=== PATIENT | male | born 1960 | race African-American/Black ===

== ENCOUNTER 2018-08-31 23:10 | Emergency (ER) | payer MEDICAID ==
[~2018-08-31] VITALS: Ht 182.9 cm; Wt 84.0 kg
[2018-09-01 00:57] LABS: CLARITY URINE CLOUDY (CLEAR); COLOR URINE DARK YELLOW (YELLOW); KETONES URINE TRACE (NEGATIVE); LEUKOCYTE ESTERASE URINE NEGATIVE (NEGATIVE); NITRITE URINE NEGATIVE (NEGATIVE); OCCULT BLOOD URINE NEGATIVE (NEGATIVE); PH URINE 5.5 (4.5-8.0); PROTEIN URINE 1+ (NEGATIVE); SPECIFIC GRAVITY URINE 1.031 (1.005-1.030)
[2018-09-01 01:03] LABS: CHLORIDE 106 mEq/L (98-107)
[2018-09-01 01:07] LABS: ETHANOL BLOOD < 10 mg/dL
[2018-09-01 01:12] LABS: BASOPHILS % 0.4 % (0.0-2.0); HEMATOCRIT. 42.3 % (42.0-52.0); HEMOGLOBIN. 14.2 g/dL (14.0-18.0); LYMPHOCYTES % 15.5 % (20.0-50.0); MEAN CORPUSCULAR HEMOGLOBIN 30.6 pg (28.0-32.0); MEAN CORPUSCULAR VOLUME 90.9 fL (80.0-94.0); MEAN PLATELET VOLUME 7.9 fl (7.4-10.4); MONOCYTES % 7.9 % (2.0-8.0); NEUTROPHILS % 74.2 % (40.0-76.0); PLATELET 246 x1000/uL (130-400); RED BLOOD CELL COUNT 4.65 mill/uL (4.7-6.1); RED CELL DISTRIBUTION WIDTH 14.6 % (11.6-14.6)
[2018-09-01 01:12] LABS: *AMPHETAMINES SCREEN URINE PRESUMTIVE POSITIVE (NEGATIVE); *BARBITURATES SCREEN URINE NEGATIVE (NEGATIVE); CANNABINOID URINE SCREEN PRESUMTIVE POSITIVE (NEGATIVE); PHENCYCLIDINE URINE SCREEN NEGATIVE (NEGATIVE)
[2018-09-01 01:13] LABS: *BENZODIAZEPINES SCREEN URINE PRESUMTIVE POSITIVE (NEGATIVE); *COCAINE SCREEN URINE PRESUMTIVE POSITIVE (NEGATIVE); METHADONE URINE SCREEN NEGATIVE (NEGATIVE); OPIATES URINE SCREEN NEGATIVE (NEGATIVE)
[2018-09-01] MEDS ORDERED: SODIUM CHLORIDE 0.9% 1,000 ML IV ONE (01:15)
[2018-09-01] MEDS ORDERED: ARIPIPRAZOLE 10MG TABLET PO ONE (21:00)
[2018-09-02] MEDS ORDERED: ALBUTEROL (0.083%) 2.5MG/3ML NEB HHN ONE (00:45)
[2018-09-02 07:54] VITALS: BP 112/67
== END 2018-09-02 08:01 | disposition home or self-care (01) ==
LOC: ER 23:10
DX: R45.851 Suicidal ideations (principal); F99 Mental disorder, not otherwise specified; Z91.14 Patient's other noncompliance with medication regimen; I10 Essential (primary) hypertension; F15.10 Other stimulant abuse, uncomplicated; F16.10 Hallucinogen abuse, uncomplicated; F14.10 Cocaine abuse, uncomplicated; F12.10 Cannabis abuse, uncomplicated
CPT/HCPCS: 36415; 80053; 80305; 80307; 80329; 81003; 82962; 85025; 94640; 99284; G0482; J7030; J7611

== ENCOUNTER 2021-09-01 16:34 | Inpatient (IN) | payer MEDICAID ==
[~2021-09-01] VITALS: Ht 177.8 cm; Wt 65.3 kg
[2021-09-01] MEDS ORDERED: MAGNESIUM/ALUMINUM HYDROXIDE/SIMETHICONE 30ML UDC PO STA (16:43)
[2021-09-01] MEDS ORDERED: SODIUM CHLORIDE 0.9% 1,000 ML IV ONE (16:45)
[2021-09-01] MEDS ORDERED: PROCHLORPERAZINE 10MG/2ML VIAL IM ONE (16:45)
[2021-09-01 22:25] LABS: BASOPHILS % 0.3 % (0.0-2.0); EOSINOPHILS % 0.4 % (0.0-5.0); HEMATOCRIT. 26.8 % (42.0-52.0); HEMOGLOBIN. 8.7 g/dL (14.0-18.0); LYMPHOCYTES % 10.4 % (20.0-50.0); MEAN CORPUSCULAR HEMOGLOBIN 25.1 pg (28.0-32.0); MEAN CORPUSCULAR VOLUME 77.1 fL (80.0-94.0); MEAN PLATELET VOLUME 7.6 fl (7.4-10.4); MONOCYTES % 13.4 % (2.0-8.0); NEUTROPHILS % 75.5 % (40.0-76.0); PLATELET 270 x1000/uL (130-400); RED BLOOD CELL COUNT 3.48 mill/uL (4.7-6.1); RED CELL DISTRIBUTION WIDTH 18.6 % (11.6-14.6)
[2021-09-01 22:29] LABS: CHLORIDE 111 mEq/L (98-107)
[2021-09-01 22:33] LABS: ETHANOL BLOOD < 10 mg/dL
[2021-09-01] MEDS ORDERED: BACLOFEN 20MG TABLET PO NR (23:30)
[2021-09-01] MEDS ORDERED: BACLOFEN 10MG TABLET PO NR (23:30)
[2021-09-02 01:08] LABS: HEMATOCRIT 27.5 % (42.0-52.0); HEMOGLOBIN 8.8 g/dL (14.0-18.0)
[2021-09-02] MEDS ORDERED: SODIUM CHLORIDE 0.9% 500 ML IV NR (01:30)
[2021-09-02 01:55] LABS: CLARITY URINE CLEAR (CLEAR); COLOR URINE YELLOW (YELLOW); KETONES URINE NEGATIVE (NEGATIVE); LEUKOCYTE ESTERASE URINE NEGATIVE (NEGATIVE); NITRITE URINE NEGATIVE (NEGATIVE); OCCULT BLOOD URINE NEGATIVE (NEGATIVE); PROTEIN URINE TRACE (NEGATIVE); SPECIFIC GRAVITY URINE 1.022 (1.005-1.030); UROBILINOGEN URINE 0.2 E.U./dL (0.2-1.0)
[2021-09-02] MEDS ORDERED: MAGNESIUM/ALUMINUM HYDROXIDE/SIMETHICONE 30ML UDC PO NR (02:00)
[2021-09-02 02:04] LABS: *AMPHETAMINES SCREEN URINE NEGATIVE (NEGATIVE); *BARBITURATES SCREEN URINE NEGATIVE (NEGATIVE); *BENZODIAZEPINES SCREEN URINE NEGATIVE (NEGATIVE); *COCAINE SCREEN URINE PRESUMTIVE POSITIVE (NEGATIVE)
[2021-09-02 02:05] LABS: CANNABINOID URINE SCREEN PRESUMTIVE POSITIVE (NEGATIVE); METHADONE URINE SCREEN NEGATIVE (NEGATIVE); OPIATES URINE SCREEN NEGATIVE (NEGATIVE); PHENCYCLIDINE URINE SCREEN NEGATIVE (NEGATIVE)
[2021-09-02] MEDS ORDERED: IOHEXOL-300 100 ML BOTTLE ONE (02:38)
[2021-09-02 16:00] VITALS: BP 127/78
[2021-09-02] MEDS ORDERED: TH50 MT (16:52)
[2021-09-02] MEDS ORDERED: BACL-141 PO (16:52)
[2021-09-02 17:24] VITALS: BP 127/78
[2021-09-02] MEDS ORDERED: PNEUMOCOCCAL 23-VAL P-SAC VAC 0.5 ML IM ONE (17:45)
[2021-09-02] MEDS ORDERED: INFLUENZA VACCINE 05/PF 0.5 ML SYRINGE IM ONE (17:45)
[2021-09-02] MEDS ORDERED: ONDANSETRON HCL 4MG/2ML INJ IV PRN (18:00)
[2021-09-02] MEDS ORDERED: LACTULOSE 20G/30ML UDC PO NR (18:00)
[2021-09-02] MEDS ORDERED: POTASSIUM CHLORIDE 20MEQ TABLET SR PO NR (18:00)
[2021-09-02] MEDS ORDERED: ACETAMINOPHEN 325MG TABLET PO PRN (18:00)
[2021-09-02] MEDS: CHLORPROMAZINE HCL 25 MG TABLET PO PRN (19:01)
[2021-09-02 20:00] VITALS: BP 96/68
[2021-09-03] VITALS: BP_SYST 110; BP_SYST 130; BP_DIAS 68; BP_DIAS 69
[2021-09-03 04:00] VITALS: BP 129/82
[2021-09-03 07:03] LABS: BASOPHILS % 0.2 % (0.0-2.0); EOSINOPHILS % 0.7 % (0.0-5.0); HEMATOCRIT. 26.3 % (42.0-52.0); HEMOGLOBIN. 8.7 g/dL (14.0-18.0); MEAN CORPUSCULAR VOLUME 78.4 fL (80.0-94.0); MEAN PLATELET VOLUME 7.5 fl (7.4-10.4); MONOCYTES % 12.4 % (2.0-8.0); NEUTROPHILS % 63.7 % (40.0-76.0); PLATELET 277 x1000/uL (130-400); RED BLOOD CELL COUNT 3.36 mill/uL (4.7-6.1); RED CELL DISTRIBUTION WIDTH 18.4 % (11.6-14.6)
[2021-09-03 08:00] VITALS: BP 124/76
[2021-09-03 08:04] LABS: CHLORIDE 107 mEq/L (98-107)
[2021-09-03] MEDS ORDERED: DOCU250C14 MT (11:55)
[2021-09-03] MEDS ORDERED: OMEP20CA14 MT (11:55)
[2021-09-03] MEDS ORDERED: FERR-71 MT (11:55)
[2021-09-03 12:00] VITALS: BP 104/71
[2021-09-03] MEDS: CHLORPROMAZINE HCL 25 MG TABLET PO PRN (13:16)
== END 2021-09-03 14:05 | disposition left against medical advice (07) | DRG 254 ==
LOC: ER 16:34 → 7EST 09-02 02:14 → EDBEDREQSVC 09-02 09:33
PROVIDERS: ADMIT Internal Medicine; ATTEND Internal Medicine
DX: K31.1 Adult hypertrophic pyloric stenosis (principal); E43 Unspecified severe protein-calorie malnutrition; E87.8 Other disorders of electrolyte and fluid balance, not elsewhere classified; K92.2 Gastrointestinal hemorrhage, unspecified; K59.00 Constipation, unspecified; E87.6 Hypokalemia; D64.9 Anemia, unspecified; D72.819 Decreased white blood cell count, unspecified; F12.90 Cannabis use, unspecified, uncomplicated; Z53.29 Procedure and treatment not carried out because of patient's decision for other reasons; F14.90 Cocaine use, unspecified, uncomplicated; J45.909 Unspecified asthma, uncomplicated; Z68.20 Body mass index [BMI] 20.0-20.9, adult
CPT/HCPCS: 36415; 71045; 74177; 76705; 80048; 80053; 80305; 80320; 81003; 82270; 82728; 83540; 83605; 85014; 85018; 85025; 86850; 86900; 99291; J0780; J7030; Q0161; Q9967; G0480

== ENCOUNTER 2021-12-11 20:20 | Emergency (ER) | payer MEDICAID, OTHER ==
[~2021-12-11] VITALS: Ht 175.3 cm; Wt 66.0 kg
[~2021-12-11 20:20] MED LIST: BACL-141 PO; DOCU250C14 MT; FERR-71 MT; OMEP20CA14 MT; TH50 MT
[2021-12-11 20:25] VITALS: BP 151/90
[2021-12-11] MEDS ORDERED: DICYCLOMINE HCL 10MG/ML 2ML VIAL IM ONE (20:45)
[2021-12-11] MEDS ORDERED: ONDANSETRON HCL 4MG TABLET PO ONE (20:45)
[2021-12-11] MEDS ORDERED: ACETAMINOPHEN 325MG TABLET PO ONE (20:45)
[2021-12-11 21:41] LABS: HEMATOCRIT. 29.6 % (42.0-52.0); HEMOGLOBIN. 9.8 g/dL (14.0-18.0); MEAN CORPUSCULAR HEMOGLOBIN 26.8 pg (28.0-32.0); MEAN CORPUSCULAR VOLUME 81.3 fL (80.0-94.0); MEAN PLATELET VOLUME 6.8 fl (7.4-10.4); PLATELET 371 x1000/uL (130-400); RED BLOOD CELL COUNT 3.64 mill/uL (4.7-6.1)
[2021-12-11 21:48] LABS: CHLORIDE 106 mEq/L (98-107)
[2021-12-11 21:51] LABS: ETHANOL BLOOD < 10 mg/dL
[2021-12-11 21:58] LABS: PLATELET ESTIMATE NORMAL
[2021-12-12 01:54] LABS: CLARITY URINE CLEAR (CLEAR); COLOR URINE YELLOW (YELLOW); KETONES URINE NEGATIVE (NEGATIVE); LEUKOCYTE ESTERASE URINE NEGATIVE (NEGATIVE); NITRITE URINE NEGATIVE (NEGATIVE); OCCULT BLOOD URINE NEGATIVE (NEGATIVE); PROTEIN URINE NEGATIVE (NEGATIVE); SPECIFIC GRAVITY URINE 1.023 (1.005-1.030)
[2021-12-12 02:03] LABS: *BARBITURATES SCREEN URINE NEGATIVE (NEGATIVE)
[2021-12-12 02:04] LABS: *BENZODIAZEPINES SCREEN URINE PRESUMTIVE POSITIVE (NEGATIVE); *COCAINE SCREEN URINE NEGATIVE (NEGATIVE); CANNABINOID URINE SCREEN NEGATIVE (NEGATIVE); METHADONE URINE SCREEN NEGATIVE (NEGATIVE); OPIATES URINE SCREEN NEGATIVE (NEGATIVE); PHENCYCLIDINE URINE SCREEN NEGATIVE (NEGATIVE)
[2021-12-12 02:05] LABS: *AMPHETAMINES SCREEN URINE PRESUMTIVE POSITIVE (NEGATIVE)
== END 2021-12-12 03:05 | disposition home or self-care (01) ==
LOC: ER 20:20
DX: F15.10 Other stimulant abuse, uncomplicated (principal); F91.8 Other conduct disorders; G89.29 Other chronic pain; R10.9 Unspecified abdominal pain; F10.10 Alcohol abuse, uncomplicated; Y90.0 Blood alcohol level of less than 20 mg/100 ml
CPT/HCPCS: 36415; 80053; 80305; 80320; 81003; 85025; 99283; G0480